=== PATIENT | female | born 1990 | race Hispanic/Latino ===

== ENCOUNTER 2018-02-08 19:39 | Inpatient (IN) | payer BC ==
[2018-02-08] MEDS: Lactated Ringer's 1,000 ML IV SCH ×2 (20:20→21:56)
[2018-02-08 20:33] VITALS: BMI 34.3
[2018-02-08] MEDS ORDERED: Butorphanol Tartrate 1 MG/ML VIAL SLOW IVP PRN (20:43)
[2018-02-08] MEDS ORDERED: NS / Oxytocin 40 units/1000ml 1,000 ML IV PRN (20:43)
[2018-02-08] MEDS ORDERED: Promethazine HCl 25 MG/ML VIAL IM PRN ×2 (20:43→21:35)
[2018-02-08] MEDS ORDERED: Lidocaine 1% (PF) 30 ML VIAL SC PRN (20:43)
[2018-02-08] MEDS ORDERED: Ibuprofen 800 MG TAB PO PRN (20:43)
[2018-02-08] MEDS ORDERED: HYDROcodone/Acetaminophen 5/325 mg Tablet PO PRN ×2 (20:43)
[2018-02-08 20:49] LABS: Hemoglobin 13.6 g/dL (12.0-16.0); Mean Corpuscular Hemoglobin 30.4 pg (27.0-31.0); Mean Corpuscular Volume 87.1 fl (81.0-99.0); Mean Platelet Volume 7.3 fL (7.4-10.4); Platelet Count 305 thou/uL (130-400); RBC Distribution Width 12.2 % (11.5-14.5); Red Blood Cell (RBC) Count 4.46 mill/uL (4.20-5.40); White Blood Cell (WBC) Count 10.2 thou/uL (4.8-10.8)
--- NOTE | 2018-02-08 20:49 | PDOC.EVN ---
Event Note - Event Note Event Note: Asked to put in admit orders (routine OB, ) for Dr Ridley. Courtesy orders placed. Direct admit to Dr Eder Ridley, who is aware of arrival. Patient not seen by me. Orders placed only.
[2018-02-08] MEDS ORDERED: Bupivacaine 0.5% 20 ML, fentaNYL Citrate/PF 400 MCG in Sodium Chloride 0.9% 72 ML EPIDURAL SCH (21:00)
[2018-02-08] MEDS ORDERED: DISCONTINUE ALL PREVIOUS NARCOTICS FS SCH (21:00)
[2018-02-08] MEDS ORDERED: Lidocaine 2% 10 ML INJ ONE ×2 (21:23)
[2018-02-08] MEDS ORDERED: Lidocaine 1% (PF) 30 ML VIAL ONE (21:24)
[2018-02-08 21:28] LABS: Syphilis Antibody Nonreactive (Nonreactive); Syphilis Antibody Index 0.04 S/CO (<1.00 Non-Reactive)
[2018-02-08] MEDS ORDERED: Acetaminophen 325 MG TAB PO PRN (21:35)
[2018-02-08] MEDS ORDERED: Ondansetron HCl/PF 4 MG/2 ML Vial IVP PRN (21:35)
[2018-02-08] MEDS ORDERED: Lactated Ringer's 500 ML IV PRN (21:35)
[2018-02-08] MEDS ORDERED: Naloxone HCl 0.4 mg/ml Vial IVP PRN ×2 (21:35)
[2018-02-08] MEDS ORDERED: diphenhydrAMINE 50 MG/ML VIAL IVP PRN (21:35)
[2018-02-08] MEDS ORDERED: ePHEDrine/0.9% NaCl/PF SYRINGE 50 mg/10 ml SLOW IVP PRN (21:35)
[2018-02-08] MEDS ORDERED: Eucerin (Mineral Oil/Petrolatum,White) 30 gm Jar TOP PRN (21:35)
[2018-02-08] MEDS ORDERED: Communication Order-Pharmacy FS SCH (21:45)
[2018-02-08] MEDS ORDERED: Fentanyl 4mcg/Marcaine 0.1% Cassette 100 ML EPIDURAL SCH (21:45)
[2018-02-09 00:11] LABS: HBSAg Index 0.19 S/CO (0-0.99); HIV (1/2) Antibody/Antigen Non-Reactive (NonReactive); HIV 1/2 INDEX 0.13 S/CO (<1.00); Hep B Surf Ag Non-Reactive S/CO (NonReactive)
[2018-02-09] MEDS ORDERED: Acetaminophen/Codeine 30-300mg Tablet PO PRN (01:52)
[2018-02-09] MEDS ORDERED: Milk Of Magnesia 30 ML UDCUP PO PRN (01:52)
[2018-02-09] MEDS ORDERED: HYDROcodone/Acetaminophen 5/325 mg Tablet PO PRN (01:52)
[2018-02-09] MEDS ORDERED: Bisacodyl 10 MG SUPP PR PRN (01:52)
[2018-02-09] MEDS ORDERED: Ondansetron HCl/PF 4 MG/2 ML Vial IVP PRN (01:52)
[2018-02-09] MEDS ORDERED: Benzocaine/Menthol 20-0.5% 60 ML CAN TOP PRN (01:52)
[2018-02-09] MEDS ORDERED: diphenhydrAMINE 25 MG CAP PO PRN (01:52)
[2018-02-09] MEDS ORDERED: Preparation H Ointment 28 GM TUBE PR PRN (01:52)
[2018-02-09] MEDS ORDERED: NS / Oxytocin 40 units/1000ml 1,000 ML IV SCH (01:52)
[2018-02-09] MEDS ORDERED: Lanolin Ointment 7 GM TUBE TOP PRN (01:52)
[2018-02-09] MEDS: Ibuprofen 800 MG TAB PO SCH ×3 (07:22→21:40)
[2018-02-09] MEDS ORDERED: Bupivacaine/Epinephrine 0.25% 30 ML VIAL ONE (08:28)
[2018-02-09] MEDS: Ferrous Sulfate 325 MG TAB PO SCH ×2 (09:47→15:50)
[2018-02-09] MEDS: Prenatal Vitamin 1 TAB PO SCH (09:47)
[2018-02-09] MEDS: Docusate Calcium (SURFAK) 240 MG CAP PO SCH ×2 (09:47→21:40)
[2018-02-10] MEDS: Ibuprofen 800 MG TAB PO SCH ×2 (05:27→14:16)
[2018-02-10 08:37] VITALS: BP 135/73; TEMP 97.9
[2018-02-10] MEDS: Prenatal Vitamin 1 TAB PO SCH (09:24)
[2018-02-10] MEDS: Docusate Calcium (SURFAK) 240 MG CAP PO SCH (09:25)
[2018-02-10] MEDS: Ferrous Sulfate 325 MG TAB PO SCH (09:25)
== END 2018-02-10 14:45 | disposition home or self-care (01) | DRG 775 ==
LOC: L&D/OP 19:39 → L&D 20:17 → 3SW 02-09 03:36
PROVIDERS: ADMIT Family Medicine; ATTEND Family Medicine
PROC: 10E0XZZ Delivery of Products of Conception, External Approach (ICD-10-PCS; principal; 2018-02-09)
PROC: 10907ZC Drainage of Amniotic Fluid, Therapeutic from Products of Conception, Via Natural or Artificial Opening (ICD-10-PCS; 2018-02-09)
DX: O80 Encounter for full-term uncomplicated delivery (principal); Z3A.39 39 weeks gestation of pregnancy; Z37.0 Single live birth
CPT/HCPCS: 51702; 85027; 86762; 86780; 86850; 86900; 86901; 87340; 87389; 99285; J2001; J3010; J3490; J7050